=== PATIENT | male | born 1975 | race Caucasian/White ===

== ENCOUNTER 2017-01-16 16:36 | Emergency (ER) | payer SELFPAY ==
[2017-01-16 16:38] VITALS: BP 172/85; PULSE 118; RESP 20; TEMP 97.7; O2SAT 98
--- NOTE | 2017-01-16 17:55 | PD ---
HPI . Left flank pain Chief Complaint: Flank/Kidney Pain Time Seen by Provider: 17:45 Travel History International Travel<30 days: No Contact w/Intl Traveler<30days: No Traveled to known affect area: No History of Present Illness HPI Patient presents with the acute onset of left flank pain. This started about 3 hours ago. He states it was actually much worse in our so ago that it is now. It is associated with some dysuria. He denies any vomiting or fever. He denies any previous similar history. He has not noted any exacerbating or relieving factors. He states the pain had been quite severe but it is now pretty mild. PFSH Past Medical History Tetanus Vaccination: Unknown Social History Alcohol Use: Yes (occaisional) Tobacco Use: Yes Allergies-Medications (Allergen,Severity, Reaction): Coded Allergies: No Known Allergies (Unverified , 01/16/17) Reported Meds & Prescriptions Reported Meds & Active Scripts Active No Active Prescriptions or Reported Medications Review of Systems Except as stated in HPI: all other systems reviewed are Neg General / Constitutional: No: Fever, Chills Genitourinary: Positive: Dysuria, Flank Pain Physical Exam Narrative GENERAL: Patient is sitting on the stretcher reading and he will look in no acute distress. SKIN: Warm and dry. No diaphoresis. HEAD: Atraumatic. Normocephalic. EYES: Pupils equal and round. Extraocular movements are intact. ENT: No nasal bleeding or discharge. Mucous membranes pink and moist. NECK: Trachea midline. Neck is supple. CARDIOVASCULAR: Regular rate and rhythm. RESPIRATORY: No accessory muscle use. GASTROINTESTINAL: Abdomen soft, non-tender, nondistended. There is no CVA tenderness. MUSCULOSKELETAL: No obvious deformities. No edema. NEUROLOGICAL: Awake and alert. No obvious cranial nerve deficits. Motor grossly within normal limits. Normal speech. PSYCHIATRIC: Appropriate mood and affect; insight and judgment normal. Data Data Last Documented VS Vital Signs Date Time Temp Pulse Resp B/P Pulse Ox O2 Delivery O2 Flow Rate FiO2 01/16/17 16:38 97.7 118 20 172/85 98 Room Air Orders Ua Includes Microscopic (01/16/17 17:46) Iv Access Insert/Monitor (01/16/17 17:46) Ketorolac Inj (Toradol Inj) (01/16/17 18:00) Ondansetron Inj (Zofran Inj) (01/16/17 18:00) Sodium Chloride 0.9% Flush (Ns Flush) (01/16/17 18:00) Hydromorphone Pf Inj (Dilaudid Pf Inj) (01/16/17 18:00) Tamsulosin (Flomax) (01/16/17 18:00) Ct Abd/Pel W/O Iv Contrast (01/16/17 17:51) Labs Laboratory Tests Test 01/16/17 18:15 Urine Color YELLOW Urine Turbidity CLEAR Urine pH 5.0 Urine Specific [place] 1.013 Urine Protein NEG mg/dL Urine Glucose (UA) NEG mg/dL Urine Ketones TRACE mg/dL Urine Occult Blood MOD Urine Nitrite NEG Urine Bilirubin NEG Urine Urobilinogen LESS THAN 2.0 MG/DL Urine Leukocyte Esterase NEG Urine RBC 9 /hpf Urine WBC 1 /hpf Urine Squamous Epithelial <1 /hpf Cells Urine Hyaline Casts 2 /lpf Urine Mucus FEW /lpf Microscopic Urinalysis Comment MDM Medical Decision Making Medical Screen Exam Complete: Yes Emergency Medical Condition: Yes Differential Diagnosis Differential diagnosis of flank pain includes but is not limited to kidney stone , pyelonephritis, musculoskeletal pain, PE Narrative Course Patient presents with acute left flank pain. The pain has waxed and waned. It is associated with dysuria. The most likely diagnosis is kidney colic. CT CONCLUSION: 1. 4 mm stone in the distal left ureter at the level of the left UVJ. 2. 3 mm stone upper pole left kidney not causing obstruction. 3. Mild hydronephrosis of the left collecting system. 4. Scattered diverticulosis of the sigmoid colon without inflammatory changes. UA has some blood but no evidence of infection. Diagnosis Primary Impression: Renal colic on left side Referrals: Marito Kruse MD Patient Instructions: General Instructions, Kidney Stones (DC) Med/Other Pt SpecificInfo: Prescription(s) given Scripts Promethazine (Phenergan)25 Mg Tab25 Mg PO Q6H PRN (Nausea/Vomiting) #10 TAB Ref 0 Prov:Christa Sevilla MD 01/16/17 Tamsulosin (Flomax)0.4 Mg Cap0.4 Mg PO HS #10 CAP Ref 0 Prov:Christa Sevilla MD 01/16/17 Oxycodone-Acetaminophen (Percocet)5-325 mg Tab1-2 Tab PO Q4H PRN (PAIN) #12 TAB Ref 0 Prov:Christa Sevilla MD 01/16/17 Disposition: 01 DISCHARGE HOME Condition: Stable Christa Sevilla MD Jan 16, 2017 17:55
[2017-01-16] MEDS ORDERED: KETOROLAC TROMETHAMINE 30 MG/ML (IVP) VIAL IVP ONE (18:00)
[2017-01-16] MEDS ORDERED: SODIUM CHLORIDE 0.9% FLUSH 10 ML FLUSH IVF PRN (18:00)
[2017-01-16] MEDS ORDERED: TAMSULOSIN HCL 0.4 MG CAP PO ONE (18:00)
[2017-01-16] MEDS ORDERED: HYDROmorphone HCL PF 2 MG/ML VIAL IM ONE (18:00)
[2017-01-16] MEDS ORDERED: ONDANSETRON HCL 4 MG/2 ML VIAL IVP ONE (18:00)
[2017-01-16 19:03] LABS: BLOOD, URINE MOD (NEG); GLUCOSE,URINE NEG (NEG); HYALINE CAST, URINE 2 /lpf (RARE); KETONE, URINE TRACE mg/dL (NEG); MUCUS URINE FEW /lpf (OCC); NITRITE,URINE NEG (NEG); SQUAMOUS EPITHELIAL CELL URINE <1 /hpf (0-5); URINE COLOR YELLOW (YELLW/STRAW)
--- NOTE | 2017-01-16 19:06 | RADRPT ---
EXAM DATE/TIME: 01/16/2017 18:41 [facility] COMPARISON: No previous studies available for comparison. INDICATIONS : Evaluate for calculi; left flank pain. ORAL CONTRAST: No oral contrast ingested. RADIATION DOSE: 18.66 CTDIvol (mGy) MEDICAL HISTORY : None SURGICAL HISTORY : None. ENCOUNTER: Initial ACUITY: 1 day PAIN SCALE: 5/10 LOCATION: Left flank TECHNIQUE: Volumetric scanning of the abdomen and pelvis was performed. Using automated exposure control and ad justment of the mA and/or kV according to patient size, radiation dose was kept as low as reasonably achievable to obtain optimal diagnostic quality images. FINDINGS: LOWER LUNGS: The visualized lower lungs are clear. LIVER: Homogeneous density without lesion. There is no dilation of the biliary tree. No calcified gallston es. SPLEEN: Normal size without lesion. PANCREAS: Within normal limits. KIDNEYS: Normal in size and shape. There is no hydronephrosis or stones involving the right kidney. There is a 3 mm stone in the upper pole of the left kidney. There is some mild hydronephrosis of the left chema ecting system. The left ureter is dilated. There is a 4 mm stone at the distal left UVJ. The stone is just inside the urinary bladder.. ADRENAL GLANDS: Within normal limits. VASCULAR: There is no aortic aneurysm. BOWEL/MESENTERY: The stomach, small bowel, and colon demonstrate no acute abnormality. There is no free intraperitone al air or fluid. Scattered diverticulosis of the sigmoid colon without inflammatory changes. The appe ndix is unremarkable. There is stool throughout the colon. ABDOMINAL WALL: Within normal limits. RETROPERITONEUM: There is no lymphadenopathy. BLADDER: No wall thickening or mass. There is a stone along the base of the urinary bladder on the left side a t the level of the left UVJ. REPRODUCTIVE: Within normal limits. INGUINAL: There is no lymphadenopathy or hernia. MUSCULOSKELETAL: Within normal limits for patient age. CONCLUSION: 1. 4 mm stone in the distal left ureter at the level of the left UVJ. 2. 3 mm stone upper pole left kidney not causing obstruction. 3. Mild hydronephrosis of the left collecting system. 4. Scattered diverticulosis of the sigmoid colon without inflammatory changes. Nabil Brooks MD on January 16, 2017 at 19:01 Board Certified Radiologist. This report was verified electronically.
[2017-01-16] MEDS ORDERED: PERC5TAB12 PO (19:13)
[2017-01-16] MEDS ORDERED: PROM25TA5 PO (19:13)
[2017-01-16] MEDS ORDERED: TAMS5CAP PO (19:13)
[2017-01-16 20:10] VITALS: RESP 18
[2017-01-16 20:32] VITALS: BP 169/81
== END 2017-01-16 20:32 | disposition home or self-care (01) ==
LOC: NEPD 16:36
DX: N23 Unspecified renal colic (principal); Z72.0 Tobacco use
CPT/HCPCS: 74176; 81001; 96374; 96375; 99284; J1885; J2405